=== PATIENT | male | born 1960 | race Caucasian/White ===

== ENCOUNTER 2024-08-15 06:28 | Day surgery (SDC) | payer BC, SELFPAY | END 2024-08-15 10:20 | disposition home or self-care (01) | LOC: GI 06:28 | PROVIDERS: ATTENDING PHYSICIAN Internal Medicine Gastroenterology | DX: Z12.11 Encounter for screening for malignant neoplasm of colon (principal); D12.0 Benign neoplasm of cecum; K57.30 Diverticulosis of large intestine without perforation or abscess without bleeding; K56.2 Volvulus; Z86.0101 Personal history of adenomatous and serrated colon polyps | CPT/HCPCS: 45385; 45380; 88305 ==

== ENCOUNTER 2025-01-04 17:32 | Emergency (ER) | payer BC, SELFPAY ==
[2025-01-04 17:35] VITALS: BP 143/98
[2025-01-04 17:39] VITALS: BMI 28.9
[2025-01-04 17:57] LABS: Hematocrit 40.5 % (39.0-52.0); Hemoglobin 13.9 g/dL (13.0-18.0); Mean Corp Hgb Conc. 34.3 g/dL (33.0-37.0); Mean Corpuscular Volume 92.3 fL (80.0-94.0); Nucleated Red Blood Cells % 0 % (-); Platelet Count 191 10^3/uL (130-400); Red Cell Dist. Width 12.3 % (11.5-14.5)
[2025-01-04 18:11] LABS: ALT (SGPT) 75 U/L (0-50); AST (SGOT) 44 U/L (17-59); Albumin 4.7 g/dl (3.5-5.0); Alkaline Phosphatase 60 U/L (38-126); Blood Urea Nitrogen 23 mg/dl (9-20); Calcium 9.9 mg/dl (8.4-10.2); Carbon Dioxide 27 mmol/L (22-30); Chloride 108 mmol/L (98-107); Estimated Creatinine Clearance 99 ml/min; Glucose 98 mg/dl (70-99); Potassium 4.7 mmol/L (3.5-5.1); Sodium 140 mmol/L (135-145); Total Protein 7.8 g/dl (6.3-8.2); eGFR > 60.00
--- NOTE | 2025-01-04 19:56 | ED.GENMED ---
History of Present Illness
General
Chief Complaint: Abdominal Symptoms
Time Seen by Provider: 01/04/25 19:41
History of Present Illness
History of Present Illness:
64-year-old male presents the emergency department for evaluation of intermittent left lower quadrant abdominal pain for the past 24 to 48 hours. States it feels comparable to his prior bout of diverticulitis. He did have mild diarrhea however
stool has since improved over the past few hours. He denies any severe pain at present. No fevers or chills. Did have a colonoscopy earlier this year with multiple polypectomies and is advised to repeat a colonoscopy in 1 year
Past History
Past History
ED Past Medical History: None; Negative Asthma, HTN, Hypercholesterolemia or NIDDM
ED Past Surgical History: None
Social History
Tobacco: Non-smoker
Alcohol: Daily (Beer 1)
Personal:
Living: with family
Review of Systems
Review of Systems
Allergies reviewed?: Yes
All Other Systems: ROS reviewed and negative except as documented in HPI and ROS
Phy Exam
Physical Exam
Physical Exam:
GEN: Well appearing, NAD, WDWN
HEENT: Oral mucosa moist, no scleral icterus
Cardiac: Regular rate
Lung: No respiratory distress, no tachypnea
Abdomen: Soft, moderate left lower quadrant tenderness, no rebound tenderness, no rigidity
MSK: No gross deformity or injuries
Skin: Good color, no pallor or jaundice, no rashes
Neuro: AO x3, moves all extremities freely
Psych: Calm, cooperative
Course
Orders/Labs/Results
Orders:
Orders
01/04/25 17:42
Comprehensive Metabolic Panel Urgent
01/04/25 17:43
Complete Blood Count/With Diff Urgent
01/04/25 19:57
Amoxicillin 875 mg/Clav 125 mg [Augmentin 875 mg/125 mg] 1 tablet PO NOW STA
Abnormal Lab Results
01/04/25 01/04/25
17:42 17:43
RBC 4.39 L 10^6/uL
(4.70-6.10)
MCH 31.7 H pg
(27.0-31.0)
MPV 10.5 H fL
(7.4-10.4)
Absolute Monos (auto) 0.9 H 10^3/uL
(0.1-0.6)
Chloride 108 H mmol/L
(98-107)
BUN 23 H mg/dl
(9-20)
ALT 75 H U/L
(0-50)
01/04/25 17:43
01/04/25 17:42
Vital Signs
Initial and Last Documented VS:
Initial Vital Signs
Temp Pulse Resp BP Pulse Ox
98.0 F 88 20 143/98 97
01/04/25 17:35 01/04/25 17:35 01/04/25 17:35 01/04/25 17:35 01/04/25 17:35
Last Documented Vital Signs
Temp Pulse Resp BP Pulse Ox
98.0 F 88 20 143/98 97
01/04/25 17:35 01/04/25 17:35 01/04/25 17:35 01/04/25 17:35 01/04/25 19:56
MDM/Problems Addressed
MDM/Problems Addressed:
Patient's labs are reassuring and he has a nonperitoneal exam. Given prior history of diverticulitis we will treat this empirically with antibiotics and clear liquid diet, strict ED return parameters discussed. Do not feel that imaging will
provide any additional benefit at this time as I am no suspicion for abscess or perforation
*Pulse Oximetry
SaO2: 97
Oxygen Mode of Delivery: Room air
Patient hypoxic: no
*Critical Care Note
Total Time (30-74mins, 75-104mins- exclusive of procedures): Not Applicable
ED Attending Note
-
Portions of this chart may have been created with voice recognition software.� Occasional wrong word or��sound alike� substitutions may have occurred due to the inherent limitations of voice recognition software.
Discharge Plan
Departure
Patient Disposition: Home (Routine Discharge)
Date of Disposition: 01/04/25
Time of Disposition: 19:56
Patient with high blood pressure during this ER visit?: No
Discharge Problem:
Diverticulitis
Instructions: Clear Liquid Diet, Diverticulitis (DC)
Prescriptions:
New
amoxicillin-pot clavulanate 875-125 mg tablet
1 tab PO BID Qty: 19 0RF
Discontinued
levofloxacin 500 MG tablet
500 mg PO DAILY Qty: 9 0RF
metronidazole 500 MG tablet
500 mg PO TID Qty: 29 0RF
Interventions
Interventions:
*Risk Screen - Suicide Last Done: 01/04/25 17:35
*General Assessment Last Done: 01/04/25 20:11
*Neglect/Abuse Screening Last Done: 01/04/25 17:35
*ED- Fall Risk Assessment Last Done: 01/04/25 20:11
*ED COVID-19 Vaccine History Last Done: 01/04/25 20:11
*Nursing Disposition Last Done: 01/04/25 20:11
NA-Kcqnpu-Jezyyhbmsh Assessment Last Done: 01/04/25 20:09
Discharge Date and Time
Discharge Date/Time: 01/04/25 20:12
Print Language: ROMANIAN
[2025-01-04] MEDS: AUGMENTIN 875 MG/125 MG 1 TABLET PO (20:05)
== END 2025-01-04 20:12 | disposition home or self-care (01) ==
LOC: EMR 17:32
PROVIDERS: Emergency Medicine; EMERGENCY PHYSICIAN Student in an Organized Health Care Education/Training Program; FAMILY PHYSICIAN Family Medicine
DX: K57.92 Diverticulitis of intestine, part unspecified, without perforation or abscess without bleeding (principal)
CPT/HCPCS: 99283; 80053; 85025